=== PATIENT | female | born 1975 | race Caucasian/White ===

== ENCOUNTER 2016-08-15 14:55 | Outpatient (CLI) | payer MEDICAID ==
[~2016-08-15] VITALS: Ht 162.6 cm; Wt 95.0 kg
[~2016-08-15 14:55] MED LIST: ADDERALL 10 MG10 MG PO; ATIVAN0.5 MG PO; CIPRO500 MG PO; CYCLOBENZAPRINE10 MG PO; DILAUDID4 MG PO; DURAGESIC1 PATCH .1; NEURONTIN 300300 MG PO; NORCO 10/325 TA1 TA1 PO; OXYCODONE HCL E20 MG PO; OXYCODONE HCL10 MG PO; OXYCONTIN10 MG PO; PEPCID40 MG PO; PERCOCET 10/3251 TA1 PO; PHENERGAN25 M1 PO; REGLAN10 MG PO; VITAMIN B-1000 MCG/M IM; VYVANSE60 MG PO; XANAX0.5 MG PO; ZOFRAN8 MG PO; ZYPREXA2.5 MG PO
[2016-08-15 15:30] VITALS: BP 114/79; Ht 162.6 cm; Wt 95.0 kg
[2016-08-15 17:15] LABS: BASOPHILS 0.2 % (0.0-2.0); EOSINOPHILS 1.8 % (0-7); HEMATOCRIT 30.3 % (36.0-48.0); HEMOGLOBIN 9.2 g/dL (12-16); IMMATURE GRANULOCYTES 0.2 % (0-5); LYMPHOCYTES 40.1 % (15-50); MCH 28.5 pg (26.0-34.0); MCHC 30.4 g/dL (31.0-37.0); MCV 93.8 fL (80.0-100.0); MEAN PLATELET VOLUME 9.2 fL (7.4-10.4); MONOCYTES 8.2 % (2-11); NEUTROPHILS 49.5 % (40-80); RBC 3.23 10x6/uL (4.00-5.40); RDW 15.8 % (11.5-14.5); WBC 5.5 10x3/uL (4.8-10.8)
[2016-08-15 17:37] LABS: PLATELET COUNT 292 10x3/uL (130-400)
[2016-08-15 17:40] LABS: ALBUMIN 2.5 g/dL (3.4-5.0); ALKALINE PHOSPHATASE 115 U/L (46-116); ALT (SGPT) 36 U/L (10-68); BILIRUBIN - TOTAL 0.24 mg/dL (0.2-1.3); CALC OSMOLALITY 280 mosm/kg (275-300); CALCIUM 7.3 mg/dL (8.5-10.1); CHLORIDE - SERUM 108 mmol/L (98-107); CHOL - HDL RATIO 3.1 ratio (2.3-4.1); CHOLESTEROL, TOTAL 93 mg/dL (0-200); CREATININE - SERUM 0.8 mg/dL (0.6-1.3); GLUCOSE 88 mg/dL (74-106); HDL CHOLESTEROL 30 mg/dL (32-96); LDL CHOLESTEROL 51 mg/dL (0-100); LDL-HDL RATIO 1.7 ratio (1.5-3.5); SODIUM 141 mmol/L (136-145); THYROID STIMULATING HORMONE 3.14 uIU/mL (0.36-3.74); TRIGLYCERIDE 62 mg/dL (30-200); UREA NITROGEN 15 mg/dL (7-18); eGFR NON AFRICAN AMERICAN 83 mL/min (90-120)
== END 2016-08-15 15:46 | disposition home or self-care (01) ==
LOC: D.OPS 14:55
PROVIDERS: Family Medicine
DX: K86.1 Other chronic pancreatitis (principal); I10 Essential (primary) hypertension; Z13.220 Encounter for screening for lipoid disorders

== ENCOUNTER 2016-10-16 15:08 | Outpatient (CLI) | payer MEDICAID ==
[2016-10-16 15:47] VITALS: BP 141/98; Ht 162.6 cm
--- NOTE | 2016-10-16 15:50 | NUR ---
1525-ACCESSED PORT UNDER ASEPTIC TECHNIQUE WITH 20G 3/4 HINOJOSA NEEDLE.
== END 2016-10-16 15:40 ==
LOC: D.OPS 15:08
DX: K86.1 Other chronic pancreatitis (principal); Z45.2 Encounter for adjustment and management of vascular access device

== ENCOUNTER 2016-12-12 08:39 | Outpatient (CLI) | payer MEDICAID ==
[~2016-12-12] VITALS: Ht 162.6 cm; Wt 85.5 kg
[2016-12-12] MEDS ORDERED: KLONOPIN0.5 MG PO (09:27)
[2016-12-12 09:33] VITALS: BP 131/90; Ht 162.6 cm; Wt 85.5 kg
--- NOTE | 2016-12-12 11:03 | NUR ---
734941.8 68-18-97% SAT 113/76 PUDDING SERVED, INFUSIION HAS COMPLETED, PORT FLUSHED PER MAR, DC'D WITH HINOJOSA NEEDLE INTACT, RELEASED AMB.
== END 2016-12-12 11:00 | disposition home or self-care (01) ==
LOC: D.OPS 08:39
DX: Z45.2 Encounter for adjustment and management of vascular access device (principal)

== ENCOUNTER → 2017-01-05 09:39 | Outpatient (CLI) | payer MEDICAID ==
[2016-12-12 09:33] VITALS: BMI 32.3
[~2017-01-05 09:39] MED LIST changes: +KLONOPIN0.5 MG PO
== END | disposition home or self-care (01) ==
LOC: D.CT 09:39
DX: K43.0 Incisional hernia with obstruction, without gangrene (principal)

== ENCOUNTER → 2017-02-14 15:07 | Outpatient (CLI) | payer MEDICAID ==
[2016-12-12 09:33] VITALS: BMI 32.3
[~2017-02-14 15:07] MED LIST changes: +BACTRIM DS TABL1 TAB PO; +FLINTSTONE1 TAB.CHEW PO; +OXYCODONE HCL5 MG PO; +ROBAXIN500 MG PO; +VOLTAREN100 GM TOPICAL; +ZOFRAN ODT4 MG/UDTAB PO; -ZOFRAN8 MG PO
== END | disposition home or self-care (01) ==
LOC: D.CT 15:07
DX: D64.9 Anemia, unspecified (principal)

== ENCOUNTER 2017-02-19 12:46 | Outpatient (CLI) | payer MEDICAID ==
[~2017-02-19 12:46] MED LIST changes: -BACTRIM DS TABL1 TAB PO; -FLINTSTONE1 TAB.CHEW PO; -OXYCODONE HCL5 MG PO; -ROBAXIN500 MG PO; -VOLTAREN100 GM TOPICAL
[2017-02-19] MEDS ORDERED: VOLTAREN100 GM TOPICAL (14:50)
[2017-02-19 14:53] VITALS: BP 102/64; BMI 30.9
== END 2017-02-19 16:25 | disposition home or self-care (01) ==
LOC: D.OPS 12:46
DX: D64.9 Anemia, unspecified (principal)

== ENCOUNTER 2017-02-21 13:42 | Outpatient (CLI) | payer MEDICAID ==
[~2017-02-21 13:42] MED LIST changes: +VOLTAREN100 GM TOPICAL
[2017-02-21 14:27] VITALS: BMI 30.9
--- NOTE | 2017-02-21 14:33 | NUR ---
1410 LEFT PORT ACCESSED 1 10 GAUGE 3/4 INCH NEEDLE GOOD BLOOD RETURN DONE WITH STERILE TECHNIQUE.
--- NOTE | 2017-02-21 14:43 | NUR ---
1434 IV INFUSION COPPER INFUSION 1.6MG IN 100 C HR AT 52 CC HR INFUSINGG VIA LEFT PORT NO REDNESS OR SWELLING.
--- NOTE | 2017-02-21 15:23 | NUR ---
1520 EATING HER OWN LUNCH AND SPRITE. REQUESTED ICE AND GIVEN. IV VIA LEFT CHEST PORT INFUSING WITHOUT PROBLEMS NO REDNESS OR SWELLING.
--- NOTE | 2017-02-21 16:41 | NUR ---
1637 RECEIVED ALL COPPER INJECTION. FLUSHED PORT WITH SALINE AND JEPARIN. 20 GAUGE NEEDLE DCD CATHETER INTACT. DISCHARGE INSTRUCTIONS GIVEN. 1641 LEFT VIA AMBULATORY.
== END 2017-02-21 16:41 | disposition home or self-care (01) ==
LOC: D.OPS 13:42
DX: D64.9 Anemia, unspecified (principal)

== ENCOUNTER 2017-02-23 13:56 | Outpatient (CLI) | payer MEDICAID ==
[2017-02-23 14:15] VITALS: BP 114/75; BMI 30.9
--- NOTE | 2017-02-23 17:42 | NUR ---
1630 REPORT FROM OLIVIA CRUZ R.N. CHECKED ON PATIENT RECEIVING COPPER INJECTION AND INFUSING VIA LEFT PORT NO REDNESS OR SWELLING.
--- NOTE | 2017-02-23 17:45 | NUR ---
1659 FLUSHED PORT WITH SALINE AND HEPARIN FLUSH. HINOJOSA NEEDLE DCD CATHETER TIP INTACT.
--- NOTE | 2017-02-23 17:46 | NUR ---
1700 DISCHARGE INSTRUCTIOPNS GIVEN. 1705 PATIENT LEFT AMBULATED SELF AND TO HOME.
== END 2017-02-23 17:05 | disposition home or self-care (01) ==
LOC: D.OPS 13:56
DX: D64.9 Anemia, unspecified (principal)

== ENCOUNTER 2017-03-09 13:54 | Outpatient (CLI) | payer MEDICAID ==
[2017-03-09 15:25] VITALS: BP 127/83; BMI 30.9
--- NOTE | 2017-03-09 15:56 | NUR ---
1545 REPORT FROM MARTELL WHITEHEAD. RECEIVING COPPER INFUSING VIA LEFT CHEST PORT AT 52 CC/HR. NO RENESS OR SWELLING.
--- NOTE | 2017-03-09 17:59 | NUR ---
1718 INFUSION COPPER COMPLETE. 1719 PORT WITH SALINE AND HEPARIN FLUSH. TOLERATED WELL HINOJOSA NEEDLE DCD CATHETER INTACT.1720 DISCHARGED TO HOME AND TOLD TO COME BACK SUNDAY FOR COPPER INJECTION.
== END 2017-03-09 17:20 | disposition home or self-care (01) ==
LOC: D.OPS 13:54
DX: D64.9 Anemia, unspecified (principal); E83.00 Disorder of copper metabolism, unspecified

== ENCOUNTER 2017-03-12 13:47 | Outpatient (CLI) | payer MEDICAID ==
--- NOTE | 2017-03-12 14:53 | NUR ---
1440-ACCESSED PORT TO LEFT UPPER CHEST UNDER ASEPTIC TECHNIQUE WITH 19G ONE INCH HINOJOSA NEEDLE, FLUSHES EASILY AND BRISK BLOOD RETURN NOTED. INITITATED INFUSION VIA PUMP OVER 2 HRS.
[2017-03-12 15:01] VITALS: BP 113/78
--- NOTE | 2017-03-12 16:50 | NUR ---
INFUSION COMPLETED. PORT FLUSHED WITH SALINE AND HEP FLUSH. HINOJOSA NEEDLE D/C'D INTACT, SITE COVERED WITH BANDAID.
--- NOTE | 2017-03-12 16:55 | NUR ---
D/C'D AMBULATORY TO HOME.
== END 2017-03-12 16:55 | disposition home or self-care (01) ==
LOC: D.OPS 13:47
DX: D64.9 Anemia, unspecified (principal); E83.00 Disorder of copper metabolism, unspecified

== ENCOUNTER 2017-03-14 14:22 | Outpatient (CLI) | payer MEDICAID ==
[2017-03-14 15:03] VITALS: BP 138/99; BMI 30.9
--- NOTE | 2017-03-14 17:10 | NUR ---
1655-COMPLAINS OF "ALL OVER" BODY ACHES AND PAINS. ORDER RECEIVED BY TELEPHONE TO GIVEN 60MG TORADOL IM PER DR. KATE. DINNER TRAY ORDERED, WATCHING TV WITH ICE WATER OFFERED.
== END 2017-03-14 18:16 ==
LOC: D.OPS 14:22
DX: D64.9 Anemia, unspecified (principal); E83.00 Disorder of copper metabolism, unspecified

== ENCOUNTER 2017-04-04 11:37 | Outpatient (CLI) | payer MEDICAID ==
[~2017-04-04] VITALS: Ht 162.6 cm; Wt 81.8 kg
[2017-04-04 13:55] VITALS: Ht 162.6 cm; Wt 81.8 kg
== END 2017-04-04 14:55 ==
LOC: D.OPS 11:37
DX: D64.9 Anemia, unspecified (principal)

== ENCOUNTER 2017-04-06 09:38 | Outpatient (CLI) | payer MEDICAID ==
[~2017-04-06] VITALS: Ht 162.6 cm; Wt 81.8 kg
[2017-04-06 10:09] VITALS: BP 116/80; Ht 162.6 cm; Wt 81.8 kg
--- NOTE | 2017-04-06 10:33 | NUR ---
ARRIVED AT 1000 FOR COPPER INFUSION. ASSESSMENT COMPLETE V/S STABLE.
--- NOTE | 2017-04-06 10:36 | NUR ---
1025 ACCESSED PORT UNSUCCESSFUL BY DANIS KAN R.N. PORT ACCESSED LEFT CHEST GOOD BLOOD RETURN WITH STERILE TECHNIQUE.
--- NOTE | 2017-04-06 10:37 | NUR ---
1029 COPPER INFUSIN STARTED. INFUSING VIA LEFT PORT WITHOUT ANY PROBLEMS OR BURNING NOTED.
--- NOTE | 2017-04-06 11:48 | NUR ---
1125 ATE LUNCH. TOLERATED COPPER, NO S/S OF ADVERSE EFFECTS.
--- NOTE | 2017-04-06 11:49 | NUR ---
1140 SALINE AND HEPARIN FLUSH DONE TO PORT. HINOJOSA NEEDLE DCD CATHETER INTACT.
--- NOTE | 2017-04-06 11:51 | NUR ---
1145 DISCHARGED TO HOME AMBULATED WITH FRIEND.
== END 2017-04-06 11:45 | disposition home or self-care (01) ==
LOC: D.OPS 09:38
DX: D64.9 Anemia, unspecified (principal); E83.00 Disorder of copper metabolism, unspecified

== ENCOUNTER 2017-04-09 08:19 | Day surgery (SDC) | payer MEDICAID ==
[~2017-04-09] VITALS: Ht 162.6 cm; Wt 84.1 kg
[2017-04-09 10:17] VITALS: BP 108/74; Ht 162.6 cm; Wt 84.1 kg
[2017-04-09 10:38] LABS: HEMATOCRIT 35.6 % (36.0-48.0); HEMOGLOBIN 11.3 g/dL (12-16); MCH 30.5 pg (26.0-34.0); MCHC 31.7 g/dL (31.0-37.0); MCV 96.2 fL (80.0-100.0); MEAN PLATELET VOLUME 9.3 fL (7.4-10.4); RBC 3.7 10x6/uL (4.00-5.40); RDW 12.4 % (11.5-14.5); WBC 4.5 10x3/uL (4.8-10.8)
[2017-04-09] MEDS ORDERED: OXYCODONE HCL5 MG PO (12:57)
[2017-04-09] MEDS ORDERED: BACTRIM DS TABL1 TAB PO (13:00)
--- NOTE | 2017-04-09 15:15 | OP ---
PATIENT NAME: PHILIPP WHITEHEAD MEDICAL RECORD: [id number] :73 LOCATION:PATRICIA ADMISSION DATE: SURGEON: LÁZARO COURTNEY MD DATE OF OPERATION: 04/09/2017 PREOPERATIVE DIAGNOSES: Recurrent incisional hernia with involved abdominal scar, history of bariatric surgical procedure. POSTOPERATIVE DIAGNOSES: Recurrent incisional hernia with involved abdominal scar, history of bariatric surgical procedure. PROCEDURE PERFORMED: Scar revision and excision of abdominal wall soft tissue mass, incisional hernia repair with mesh. ANESTHESIA: General. COMPLICATIONS: None. SPECIMENS: Scar and subcutaneous fibrous tissue mass and incisional hernia repair with mesh. ESTIMATED BLOOD LOSS: 30 cc. Case was clean. OPERATIVE COURSE: After consent was obtained, the patient was taken to the operating room and placed in supine position on the operating table. Next, general anesthesia was given via endotracheal intubation after a timeout was taken to confirm the correct patient and procedure. A 20 cc of local anesthetic were injected around the midline incision. The scar was excised in its entirety using a 15 blade scalpel. There was a significant amount of scarred fibrous tissue in the dermis. It was excised using electrocautery. Dissection continued to the level of the external oblique fascia where the previous hernia repair was identified. There was a small 2-cm defect at the right lateral edge of the hernia repair. Subcutaneous tissue flaps were created. This tissue was undermined off the external oblique fascia using electrocautery. The hernia defect was closed primarily using an 0 Prolene suture. Next, a Ventralight mesh was used in an onlay technique to reinforce the hernia repair. A 4 x 6 inch Ventralight mesh was placed directly onto the anterior external oblique fascia, it was sutured in place using 2-0 Vicryl suture. The subcutaneous tissue flaps were reapproximated using 2-0 Vicryl suture. A JANE drain was placed into the subcutaneous tissue. Skin was reapproximated using 3-0 vertical mattress interrupted nylon sutures. The JANE drain was placed to suction. At the end of the case, all needle and instrument counts were correct. No complications occurred. The patient was extubated and transferred to the PACU in stable condition. TRANSINT:[id number] Voice Confirmation ID: [id number] DOCUMENT ID: [id number] OPERATIVE REPORT [id number] CHARLEYPHILIPP JAMES J MD at 1515 CC: [id number] DICTATION DATE: 04/09/17 1304 ACID TESTER: 04/09/17 1438 REG [facility] [address] [id number]
--- NOTE | 2017-04-09 16:00 | NUR ---
IV DC WITH CATHER TIP INTACT
--- NOTE | 2017-04-09 16:22 | NUR ---
DISCHARGE INSTRUCTIONS REVIEWED WITH PATIENT AND MOTHER. PATIENT EXPRESSES UNDERSTANDING OF INSTRUCTIONS AND UNDERSTANDING OF HOW TO EMPTY JANE DRAIN. PATIENT DISCHARGED HOME VIA WHEELCHAIR TO PRIVATE VEHICLE WITH SPOUSE
== END 2017-04-09 16:30 | disposition home or self-care (01) ==
LOC: D.OPS 08:19 → D.PAN 09:35 → D.OPS 09:45
PROVIDERS: Anesthesiology
DX: K43.2 Incisional hernia without obstruction or gangrene (principal); L90.5 Scar conditions and fibrosis of skin; L92.8 Other granulomatous disorders of the skin and subcutaneous tissue; Z98.84 Bariatric surgery status; Z01.812 Encounter for preprocedural laboratory examination

== ENCOUNTER 2017-04-17 10:16 | Outpatient (CLI) | payer MEDICAID ==
[~2017-04-17] VITALS: Ht 162.6 cm; Wt 81.8 kg
[~2017-04-17 10:16] MED LIST changes: +BACTRIM DS TABL1 TAB PO; +OXYCODONE HCL5 MG PO
[2017-04-17 10:48] VITALS: BP 128/85; Ht 162.6 cm; Wt 81.8 kg
== END 2017-04-17 12:15 | disposition home or self-care (01) ==
LOC: D.OPS 10:16
DX: D64.9 Anemia, unspecified (principal); E83.00 Disorder of copper metabolism, unspecified

== ENCOUNTER 2017-04-18 11:01 | Outpatient (CLI) | payer MEDICAID ==
[~2017-04-18] VITALS: Ht 162.6 cm; Wt 81.8 kg
[2017-04-18 14:04] VITALS: BP 142/88; Ht 162.6 cm; Wt 81.8 kg
[2017-04-18 14:15] LABS: BASOPHILS 0.1 % (0-2); EOSINOPHILS 1.4 % (0-7); HEMATOCRIT 35.1 % (36.0-48.0); HEMOGLOBIN 11.4 g/dL (12-16); IMMATURE GRANULOCYTES 0.2 % (0-5); LYMPHOCYTES 18.9 % (15-50); MCHC 32.5 g/dL (31.0-37.0); MCV 95.4 fL (80.0-100.0); MEAN PLATELET VOLUME 8.8 fL (7.4-10.4); MONOCYTES 9.5 % (2-11); NEUTROPHILS 69.9 % (40-80); PLATELET COUNT 247 10x3/uL (130-400); RBC 3.68 10x6/uL (4.00-5.40); RDW 12.3 % (11.5-14.5); WBC 9.1 10x3/uL (4.8-10.8)
[2017-04-18 14:59] LABS: ALBUMIN 2.1 g/dL (3.4-5.0); ANION GAP 8.9 mmol/L (8-16); BILIRUBIN - TOTAL 0.12 mg/dL (0.2-1.3); CALCIUM 7.6 mg/dL (8.5-10.1); CARBON DIOXIDE 28.1 mmol/L (21.0-32.0); CREATININE - SERUM 0.9 mg/dL (0.6-1.3); PROTEIN - SERUM 5.1 g/dL (6.4-8.2)
--- NOTE | 2017-04-18 15:02 | NUR ---
1501 INFUSION COMPLETED, DENIES PROBLEMS. FLUSHED WITH 20CC NS AND 5CC HEP FLUSH, HINOJOSA NEEDLE DC'D INTACK RELEASED AMB.
== END 2017-04-18 15:02 | disposition home or self-care (01) ==
LOC: D.OPS 11:01
PROVIDERS: Internal Medicine Medical Oncology
DX: D64.9 Anemia, unspecified (principal); E83.00 Disorder of copper metabolism, unspecified

== ENCOUNTER 2017-05-07 21:03 | Emergency (ER) | payer MEDICAID ==
[2017-04-18 14:04] VITALS: BMI 30.9
[2017-05-07 23:29] LABS: BASOPHILS 0.2 % (0-2); EOSINOPHILS 2.3 % (0-7); HEMATOCRIT 36.3 % (36.0-48.0); HEMOGLOBIN 11.7 g/dL (12-16); IMMATURE GRANULOCYTES 0.1 % (0-5); LYMPHOCYTES 26.9 % (15-50); MCHC 32.2 g/dL (31.0-37.0); MCV 93.1 fL (80.0-100.0); MONOCYTES 9.7 % (2-11); NEUTROPHILS 60.8 % (40-80); RDW 12.6 % (11.5-14.5); WBC 9.3 10x3/uL (4.8-10.8)
[2017-05-07 23:31] LABS: PLATELET COUNT 309 10x3/uL (130-400)
[2017-05-07 23:41] LABS: ALBUMIN 2.1 g/dL (3.4-5.0); ALKALINE PHOSPHATASE 173 U/L (46-116); ALT (SGPT) 26 U/L (10-68); BILIRUBIN - TOTAL 0.13 mg/dL (0.2-1.3); CALC OSMOLALITY 274 mosm/kg (275-300); CALCIUM 7.9 mg/dL (8.5-10.1); CHLORIDE - SERUM 104 mmol/L (98-107); CREATININE - SERUM 0.8 mg/dL (0.6-1.3); GLUCOSE 102 mg/dL (74-106); POTASSIUM - SERUM 3.8 mmol/L (3.5-5.1); SODIUM 137 mmol/L (136-145); UREA NITROGEN 14 mg/dL (7-18); eGFR NON AFRICAN AMERICAN 83 mL/min (90-120)
[2017-05-09] MEDS ORDERED: VYVANSE60 MG PO (04:01)
[2017-05-09] MEDS ORDERED: ZOFRAN ODT4 MG/UDTAB PO (04:02)
[2017-05-09] MEDS ORDERED: PERCOCET 10/3251 TA1 PO (04:03)
[2017-05-09] MEDS ORDERED: FLINTSTONE1 TAB.CHEW PO (04:05)
[2017-05-09] MEDS ORDERED: ROBAXIN500 MG PO (04:06)
== END 2017-05-08 00:15 | disposition home or self-care (01) ==
LOC: D.ER 21:03
PROVIDERS: Physician Assistant Medical
DX: L76.34 Postprocedural seroma of skin and subcutaneous tissue following other procedure (principal)

== ENCOUNTER 2017-05-09 00:51 | Inpatient (IN) | payer MEDICAID ==
[~2017-05-09] VITALS: Ht 162.6 cm; Wt 79.4 kg
--- NOTE | ~2017-05-09 | HEMODYNAMI ---
PATIENT:PHILIPP WHITEHEAD MEDICAL RECORD: [id number] : 73 LOCATION:D.MS [id number] ADMISSION DATE: 05/09/17 Generatedon:05/09/201714:35 Patient name: PHILIPP WHITEHEAD Patient #: [id number] SSN: : 1975 Date of study: 05/09/2017 Page: Of Hemodynamic Procedure Report Patient Data Patient Demographics Procedure consent was obtained First Name: PHILIPP Gender: Female Last Name: CHARLEY : 1975 Middle Initial: D Age: 41 year(s) Patient #: [id number] Race: Unknown Additional ID: [id number] Contact details Address: [address] [place] [address] State: [place] City: [facility] Zip code: [address] Admission Admission Data Admission Date: 05/09/2017 Admission Time: 2:53 Room #: D.2239 Procedure Procedure Types Cath Procedure Peripheral Cath Diagnostic Procedure Miscellaneous Procedure Description Procedure Date Procedure Date: 05/09/2017 Procedure Start Time: 14:00 Procedure Staff Name Function Jhoan Santos MD Performing Physician Ari Olivera RT Monitor Stacie Taylor RT Scrub Hazel Weathers RN Nurse Procedure Data Cath Procedure Fluoroscopy Diagnostic fluoroscopy Total fluoroscopy Time: 0.5 time: 0.5 min min Diagnostic fluoroscopy Total fluoroscopy dose: 48 dose: 48 mGy mGy Contrast Material Contrast Material Type Amount (ml) Isovue 300 15 Procedure Medications Medication Administration Route Dosage Fentanyl I.V. 50 mcg Versed I.V. 1 mg Versed I.V. 1 mg Fentanyl I.V. 50 mcg Hemodynamics Rest Heart Rate: 64 (bpm) Snapshots Pre Cath Intra NCS Post Cath Vital Signs Time Heart Resp SPO2 etCO2 NIBP (mmHg) Rhythm Pain Sedation Rate (ipm) (%) (mmHg) Status Level (bpm) 13:54:24 71 14 99 29.7 134/97(119) NSR 0 (11) 10(A) , No pain 13:58:36 69 18 100 14.5 133/83(112) NSR 0 (11) 10(A) , No pain 14:02:46 65 12 100 38.1 139/88(101) NSR 0 (11) 10(A) , No pain 14:06:58 68 11 100 40.4 135/87(111) NSR 0 (11) 10(A) , No pain 14:11:10 74 14 100 37.4 128/84(110) NSR 0 (11) 10(A) , No pain 14:15:20 68 11 37.4 136/80(110) NSR 0 (11) 10(A) , No pain 14:19:30 69 16 41.9 129/83(113) NSR 0 (11) 10(A) , No pain 14:23:40 68 11 34.3 129/82(99) NSR 0 (11) 10(A) , No pain 14:27:47 67 15 38.9 135/87(116) NSR 0 (11) 10(A) , No pain 14:31:59 67 12 38.8 134/86(108) NSR 0 (11) 10(A) , No pain Medications Time Medication Route Dose Verified Delivered Reason Notes Effectivene ss by by 14:09:01 Fentanyl I.V. 50 Jhoan Oliva for mcg Jasiel Santos RN sedation 14:09:13 Versed I.V. 1 mg Jhoan Oliva for Jasiel Santos RN sedation 14:14:21 Versed I.V. 1 mg Jhoan Oliva for Jasiel Santos RN sedation 14:14:29 Fentanyl I.V. 50 Jhoan Oliva for mcg Jasiel Santos RN sedation Procedure Log Time Note 13:39:03 Ari Olivera RT (R) (CV) sent for patient. Start room use. 13:39:13 Time tracking: Regular hours 13:39:18 Plan of Care:Hemodynamics will remain stable., Cardiac rhythm will remain stable., Comfort level will be maintained., Respiratory function will remain adequate., Patient/ family verbilizes understanding of procedure., Procedure tolerated without complication., Recovers from procedure without complications.. 13:39:24 Patient received from Med/Surg to IR Alert and oriented. Tansferred to table in Supine position. 13:39:25 Warm blankets applied, and lesly hugger turned on for patient comfort. 13:39:26 Correct patient and procedure confirmed by team. 13:39:27 Signed procedure consent form obtained from patient. 13:39:28 ECG and BP/O2 sat monitors applied to patient. 13:39:29 Full Disclosure recording started 13:39:30 - 13:39:32 H&P Date Dictated: 05/09/2017 Within 30 days and on chart.. 13:39:33 Pre-procedure instructions explained to patient. 13:39:33 Pre-op teaching completed and patient verbalized understanding. 13:39:39 Family unavailable. 13:39:43 Patient NPO since Midnight. 13:39:45 Is the patient allergic to Iodine/contrast media? No. 13:39:52 Is patient on blood thinner?No 13:39:54 Patient diabetic? No. 13:39:56 - 13:39:57 ----Pre-sedation anethsthesia assessment.---- 13:40:00 Previous problem with sedation/anesthesia? No ? 13:40:01 Snore? No 13:40:02 Sleep apnea? Yes 13:40:04 Deviated septum? No 13:40:05 Opens mouth fully? Yes 13:40:05 Sticks out tongue? Yes 13:40:07 Airway obstruction? No ? 13:40:11 Dentures? Yes in tight 13:40:20 Patient pain scale 0/10 no pain. 13:40:27 IV patent on arrival in port with 0.9% NaCl at [facility]. 13:40:37 Use device set IR Diagnostic 13:40:39 Bag Decanter (2002) opened to sterile field. 13:40:39 Sterile Angiographic Pack opened to sterile field. 13:53:20 Vital chart was started 13:53:21 Baseline sample Acquired. 13:59:13 Right abdomen area was prepped with chlora-prep and draped in sterile fashion 13:59:15 Alarms reviewed by R. N. 13:59:15 Sharps counted by scrub and verified by R.N. 13:59:57 Physician arrived 13:59:57 --------ALL STOP TIME OUT------ 13:59:58 Final Timeout: patient, procedure, and site verified with staff and physician. All members of the team are in agreement. 14:00:05 Right abdomen site verified by team. 14:00:10 Sedation plan: IV Moderate Sedation Medication:Versed, Fentanyl 14:00:24 Procedure started. 14:00:29 Local anesthetic to Abdominal area with Lidocaine 1% by Jhoan Santos MD.INITIAL ACCESS ONLY 14:07:22 Micropuncture VSI 4FR kit opened to sterile field. 14:07:22 BAG, DRAINAGE EMPTY 600ML W/SONIA ([id number]) opened to sterile field. 14:09:01 Fentanyl 50 mcg I.V. was administered by Hazel Weathers RN; for sedation ; 14:09:13 Versed 1 mg I.V. was administered by Hazel Weathers RN; for sedation; 14:11:13 Cook AMIN 80 CM guide wire opened to sterile field. 14:13:07 DILATOR, VESSEL 8/20 opened to sterile field. 14:13:08 DILATOR, VESSEL 10/20 opened to sterile field. 14:13:08 DILATOR, VESSEL 11/20 opened to sterile field. 14:13:28 Abscession 12 FR drainage catheter ([id number]) opened to sterile field. 14:14:21 Versed 1 mg I.V. was administered by Hazel Weathers RN; for sedation; 14:14:29 Fentanyl 50 mcg I.V. was administered by Hazel Weathers RN; for sedation ; 14:14:58 STOPCOCK 3-Way Large Bore ([id number]) opened to sterile field. 14:15:14 SUTURE ETHILON 2-0 BLK MONO FS opened to sterile field. 14:15:16 Tegaderm 4 x 4 (1626W) opened to sterile field. 14:25:01 Procedure ended.(Physican Out) 14:30:48 Fluoroscopy time 00.50 minutes. 14:30:52 Fluoroscopy dose: 48 mGy 14:30:52 Flurop Dose total: 48 14:31:29 Contrast amount:Isovue 300 15ml. 14:31:31 Insertion/operative site no bleeding no hematoma. 14:31:39 Post Abdominal area:stable 14:33:34 Post procedure instruction explained to patient.Patient verbalizes understanding. 14:33:35 Procedure and supply charges have been captured, reviewed, submitted an d are correct. 14:34:39 Report given to Med/Surg. 14:34:42 Patient transfered to Med/Surg with Bed. 14:35:01 Vital chart was stopped Device Usage Item Name Manufacture Quantity Catalog Hospital Part Current Minim al Lot# / Number Charge Number Stock Stock Serial# Code Bag Decanter Microtek 1 [id number] 02013 [id number] 5 () Medical Inc. Sterile Cardinal 1 [id number] [id number] 5 Angiographic Health Pack Micropuncture VSI VASCULAR 1 [id number] 174036 971103 5 VSI 4FR kit SOLUTIONS BAG, DRAINAGE [facility] 1 [id number] 741004 456469 804248 5 EMPTY 600ML W/SONIA ([id number]) Cook AMIN 80 [employer] 1 [id number] 093265 659914 5 [id number] CM guide wire DILATOR, [employer] 1 [id number] 617657 57850 837045 5 [id number] VESSEL 8/20 DILATOR, [employer] 1 [id number] 868435 70507 971071 5 [id number] VESSEL 10/20 DILATOR, [employer] 1 [id number] 448865 29117 846308 5 [id number] VESSEL 11/20 Abscession 12 Angiodynamics 1 [id number] 718022 260519 931056 5 FR drainage catheter ([id number]) STOPCOCK [employer] 1 [id number] 462617 6023 941537 5 [id number] 3-Way Large Bore ([id number]) SUTURE Ethicon 1 664H 209490 886856 5 ETHILON 2-0 BLK MONO FS Tegaderm 4 x 3M 1 1626W 856341 925009 515933 5 4 (1626W) Signature Audit [place] Stage Time Signature Unsigned Intra-Procedure 05/09/2017 Ari 2:34:58 PM Shuffield RT (R) (CV) Signatures Monitor : Ari Signature : Joselin RT Date : Time : [place] [address] [id number] [place] [address]
[2017-05-09 01:42] LABS: BASOPHILS 0.3 % (0-2); EOSINOPHILS 3.7 % (0-7); HEMATOCRIT 34.7 % (36.0-48.0); HEMOGLOBIN 11.2 g/dL (12-16); IMMATURE GRANULOCYTES 0.1 % (0-5); LYMPHOCYTES 29.4 % (15-50); MCHC 32.3 g/dL (31.0-37.0); MEAN PLATELET VOLUME 8.6 fL (7.4-10.4); MONOCYTES 9.9 % (2-11); NEUTROPHILS 56.6 % (40-80); PLATELET COUNT 264 10x3/uL (130-400); RBC 3.73 10x6/uL (4.00-5.40); RDW 12.6 % (11.5-14.5)
[2017-05-09 01:43] LABS: WBC 6.8 10x3/uL (4.8-10.8)
[2017-05-09 01:55] LABS: ALKALINE PHOSPHATASE 154 U/L (46-116); ALT (SGPT) 24 U/L (10-68); C-REACTIVE PROTEIN 2.4 mg/dL (0.0-0.9); CALC OSMOLALITY 271 mosm/kg (275-300); CALCIUM 7.8 mg/dL (8.5-10.1); CARBON DIOXIDE 26.4 mmol/L (21.0-32.0); CHLORIDE - SERUM 103 mmol/L (98-107); CREATININE - SERUM 0.7 mg/dL (0.6-1.3); GLUCOSE 83 mg/dL (74-106); PROTEIN - SERUM 5.8 g/dL (6.4-8.2); SODIUM 137 mmol/L (136-145); UREA NITROGEN 11 mg/dL (7-18); eGFR NON AFRICAN AMERICAN > 90 mL/min (90-120)
[2017-05-09] MEDS ORDERED: VYVANSE60 MG PO (04:01)
[2017-05-09] MEDS ORDERED: ZOFRAN ODT4 MG/UDTAB PO (04:02)
[2017-05-09] MEDS ORDERED: PERCOCET 10/3251 TA1 PO (04:03)
[2017-05-09] MEDS ORDERED: FLINTSTONE1 TAB.CHEW PO (04:05)
[2017-05-09] MEDS ORDERED: ROBAXIN500 MG PO (04:06)
[2017-05-09 04:48] VITALS: BP 107/82; BMI 30.1
[2017-05-09 09:16] VITALS: BP 101/72
[2017-05-09 10:59] LABS: BASOPHILS 0.2 % (0-2); HEMATOCRIT 33.1 % (36.0-48.0); HEMOGLOBIN 10.7 g/dL (12-16); IMMATURE GRANULOCYTES 0.2 % (0-5); LYMPHOCYTES 23.4 % (15-50); MCH 30.2 pg (26.0-34.0); MCHC 32.3 g/dL (31.0-37.0); MCV 93.5 fL (80.0-100.0); MEAN PLATELET VOLUME 8.7 fL (7.4-10.4); MONOCYTES 8.1 % (2-11); NEUTROPHILS 64.1 % (40-80); PLATELET COUNT 253 10x3/uL (130-400); RBC 3.54 10x6/uL (4.00-5.40); RDW 12.6 % (11.5-14.5); WBC 5.9 10x3/uL (4.8-10.8)
[2017-05-09 11:14] LABS: CALC OSMOLALITY 274 mosm/kg (275-300); CALCIUM 7.8 mg/dL (8.5-10.1); CARBON DIOXIDE 27.6 mmol/L (21.0-32.0); CHLORIDE - SERUM 108 mmol/L (98-107); CREATININE - SERUM 0.6 mg/dL (0.6-1.3); GLUCOSE 85 mg/dL (74-106); POTASSIUM - SERUM 4.3 mmol/L (3.5-5.1); SODIUM 139 mmol/L (136-145); eGFR NON AFRICAN AMERICAN > 90 mL/min (90-120)
[2017-05-09 11:19] LABS: UREA NITROGEN 8 mg/dL (7-18)
[2017-05-09 11:27] LABS: APTT 32.2 SECONDS (22.8-39.4); INR 1.12 (0.85-1.17)
[2017-05-09 11:47] VITALS: BP 112/75
[2017-05-09 16:15] VITALS: BP 108/72
[2017-05-09 19:03] VITALS: Ht 162.6 cm; Wt 79.4 kg
[2017-05-10 04:00] VITALS: BP 111/80
[2017-05-10 06:26] LABS: BASOPHILS 0.2 % (0-2); EOSINOPHILS 3.5 % (0-7); HEMATOCRIT 33.2 % (36.0-48.0); HEMOGLOBIN 10.6 g/dL (12-16); LYMPHOCYTES 35.6 % (15-50); MCH 29.9 pg (26.0-34.0); MCHC 31.9 g/dL (31.0-37.0); MCV 93.5 fL (80.0-100.0); MEAN PLATELET VOLUME 8.6 fL (7.4-10.4); MONOCYTES 10.4 % (2-11); NEUTROPHILS 50.3 % (40-80); PLATELET COUNT 228 10x3/uL (130-400); RBC 3.55 10x6/uL (4.00-5.40); RDW 12.6 % (11.5-14.5); WBC 4.6 10x3/uL (4.8-10.8)
[2017-05-10 06:49] LABS: ALBUMIN 1.5 g/dL (3.4-5.0); ALKALINE PHOSPHATASE 140 U/L (46-116); CALCIUM 7.6 mg/dL (8.5-10.1); CARBON DIOXIDE 26.3 mmol/L (21.0-32.0); CHLORIDE - SERUM 109 mmol/L (98-107); CREATININE - SERUM 0.6 mg/dL (0.6-1.3); GLUCOSE 111 mg/dL (74-106); POTASSIUM - SERUM 3.8 mmol/L (3.5-5.1); SODIUM 141 mmol/L (136-145); eGFR NON AFRICAN AMERICAN > 90 mL/min (90-120)
[2017-05-10 06:58] LABS: ALT (SGPT) 16 U/L (10-68); CALC OSMOLALITY 278 mosm/kg (275-300); UREA NITROGEN 5 mg/dL (7-18)
[2017-05-10 07:58] VITALS: BP 112/72
[2017-05-10 12:02] VITALS: BP 98/65
[2017-05-10 16:14] VITALS: BP 120/73
[2017-05-11] VITALS: BP 105/73
[2017-05-11 04:00] VITALS: BP 130/71
[2017-05-11 05:29] LABS: BASOPHILS 0.4 % (0-2); EOSINOPHILS 8.5 % (0-7); HEMATOCRIT 34.2 % (36.0-48.0); HEMOGLOBIN 10.8 g/dL (12-16); IMMATURE GRANULOCYTES 0.2 % (0-5); LYMPHOCYTES 36.7 % (15-50); MCH 29.8 pg (26.0-34.0); MCHC 31.6 g/dL (31.0-37.0); MCV 94.2 fL (80.0-100.0); MEAN PLATELET VOLUME 9.1 fL (7.4-10.4); MONOCYTES 12.1 % (2-11); NEUTROPHILS 42.1 % (40-80); RBC 3.63 10x6/uL (4.00-5.40); RDW 12.5 % (11.5-14.5)
[2017-05-11 05:30] LABS: PLATELET COUNT 288 10x3/uL (130-400)
[2017-05-11 05:52] LABS: ALBUMIN 1.7 g/dL (3.4-5.0); ALKALINE PHOSPHATASE 133 U/L (46-116); ALT (SGPT) 16 U/L (10-68); CALC OSMOLALITY 279 mosm/kg (275-300); CALCIUM 7.7 mg/dL (8.5-10.1); CARBON DIOXIDE 28.7 mmol/L (21.0-32.0); CHLORIDE - SERUM 108 mmol/L (98-107); GLUCOSE 128 mg/dL (74-106); POTASSIUM - SERUM 3.9 mmol/L (3.5-5.1); PROTEIN - SERUM 5.2 g/dL (6.4-8.2); SODIUM 141 mmol/L (136-145); UREA NITROGEN 4 mg/dL (7-18); VANCOMYCIN - TROUGH 8.4 ug/mL (10.0-20.0)
[2017-05-11 05:53] LABS: BILIRUBIN - TOTAL 0.08 mg/dL (0.2-1.3); CREATININE - SERUM 0.8 mg/dL (0.6-1.3); eGFR NON AFRICAN AMERICAN 83 mL/min (90-120)
[2017-05-11 08:21] VITALS: BP 129/92
[2017-05-11 11:50] VITALS: BP 123/83
[2017-05-11] MEDS ORDERED: OXYCODONE HCL5 MG PO (14:00)
[2017-05-11] MEDS ORDERED: BACTRIM DS TABL1 TAB PO (14:01)
[2017-05-11 14:17] LABS: FUNGUS STAIN Final report (())
[2017-06-07 12:19] LABS: FUNGUS MYCOLOGY CULTURE Final report (())
== END 2017-05-11 15:47 | disposition home or self-care (01) | DRG 863 ==
LOC: D.ER 00:51 → D.MS 02:53
PROVIDERS: Family Medicine; General Practice
PROC: 0W9F30Z Drainage of Abdominal Wall with Drainage Device, Percutaneous Approach (ICD-10-PCS; principal; 2017-05-09 13:30)
DX: T81.4XXA Infection following a procedure, initial encounter (principal); L03.90 Cellulitis, unspecified; Y83.8 Other surgical procedures as the cause of abnormal reaction of the patient, or of later complication, without mention of misadventure at the time of the procedure; Y82.8 Other medical devices associated with adverse incidents; R79.82 Elevated C-reactive protein (CRP); F41.8 Other specified anxiety disorders; D64.9 Anemia, unspecified

== ENCOUNTER 2017-06-10 05:02 | Emergency (ER) | payer SELFPAY ==
[~2017-06-10 05:02] MED LIST changes: +FLINTSTONE1 TAB.CHEW PO; +ROBAXIN500 MG PO
== END 2017-06-10 06:20 | disposition home or self-care (01) ==
LOC: D.ER 05:02
DX: S93.601A Unspecified sprain of right foot, initial encounter (principal); W19.XXXA Unspecified fall, initial encounter; Y93.89 Activity, other specified; Y92.019 Unspecified place in single-family (private) house as the place of occurrence of the external cause; S80.212A Abrasion, left knee, initial encounter

== ENCOUNTER 2017-09-12 11:28 | Outpatient (CLI) | payer MEDICARE ==
[~2017-09-12] VITALS: Ht 162.6 cm; Wt 81.8 kg
[2017-09-12 13:55] VITALS: Ht 162.6 cm; Wt 81.8 kg
== END 2017-09-12 14:44 | disposition home or self-care (01) ==
LOC: D.OPS 11:28
DX: D64.9 Anemia, unspecified (principal); E83.00 Disorder of copper metabolism, unspecified

== ENCOUNTER → 2017-10-24 16:28 | Outpatient (CLI) | payer MEDICARE ==
[2017-09-12 13:55] VITALS: BMI 30.9
== END | disposition home or self-care (01) ==
LOC: D.RAD 16:28
DX: M54.5 Low back pain (principal); M54.16 Radiculopathy, lumbar region

== ENCOUNTER 2017-12-14 13:18 | Outpatient (CLI) | payer MEDICARE ==
[~2017-12-14] VITALS: Ht 162.6 cm; Wt 79.5 kg
[2017-12-14 14:32] VITALS: BP 111/79; Ht 162.6 cm; Wt 79.5 kg
== END 2017-12-14 18:30 | disposition home or self-care (01) ==
LOC: D.OPS 13:18
DX: E83.00 Disorder of copper metabolism, unspecified (principal); Z01.812 Encounter for preprocedural laboratory examination

== ENCOUNTER 2017-12-17 13:24 | Outpatient (CLI) | payer MEDICARE ==
[~2017-12-17] VITALS: Ht 162.6 cm; Wt 79.5 kg
[2017-12-17 14:52] VITALS: Ht 162.6 cm; Wt 79.5 kg
== END 2017-12-17 16:50 | disposition home or self-care (01) ==
LOC: D.OPS 13:24
DX: E83.00 Disorder of copper metabolism, unspecified (principal); Z01.812 Encounter for preprocedural laboratory examination

== ENCOUNTER 2017-12-18 14:14 | Outpatient (CLI) | payer MEDICARE ==
[~2017-12-18] VITALS: Ht 162.6 cm; Wt 81.8 kg
[2017-12-18 14:58] VITALS: Ht 162.6 cm; Wt 81.8 kg
== END 2017-12-18 16:54 | disposition home or self-care (01) ==
LOC: D.OPS 14:14
DX: E83.00 Disorder of copper metabolism, unspecified (principal); Z01.812 Encounter for preprocedural laboratory examination

== ENCOUNTER 2017-12-19 15:35 | Outpatient (CLI) | payer MEDICARE ==
[~2017-12-19] VITALS: Ht 162.6 cm; Wt 81.8 kg
[2017-12-19 15:54] VITALS: BP 142/87; Ht 162.6 cm; Wt 81.8 kg
== END 2017-12-19 17:40 | disposition home or self-care (01) ==
LOC: D.OPS 15:35
DX: E83.00 Disorder of copper metabolism, unspecified (principal); Z01.812 Encounter for preprocedural laboratory examination

== ENCOUNTER → 2017-12-21 14:09 | Outpatient (CLI) | payer MEDICARE ==
[~2017-12-21] VITALS: Ht 162.6 cm; Wt 81.8 kg
[2017-12-21 14:33] VITALS: BP 140/87; Ht 162.6 cm; Wt 81.8 kg
== END | disposition home or self-care (01) ==
LOC: D.OPS 14:09
DX: E83.00 Disorder of copper metabolism, unspecified (principal); Z01.812 Encounter for preprocedural laboratory examination

== ENCOUNTER 2018-01-15 11:29 | Outpatient (CLI) | payer MEDICARE ==
[~2018-01-15] VITALS: Ht 162.6 cm; Wt 79.5 kg
[2018-01-15 11:49] VITALS: BP 129/88; Ht 162.6 cm; Wt 79.5 kg
== END 2018-01-15 13:50 | disposition home or self-care (01) ==
LOC: D.OPS 11:29
DX: D64.9 Anemia, unspecified (principal); E83.00 Disorder of copper metabolism, unspecified

== ENCOUNTER → 2018-01-16 15:31 | Outpatient (CLI) | payer MEDICARE ==
[~2018-01-16] VITALS: Ht 162.6 cm; Wt 81.4 kg
[2018-01-16 15:50] VITALS: BP 130/93; Ht 162.6 cm; Wt 81.4 kg
== END | disposition home or self-care (01) ==
LOC: D.OPS 12:00
DX: D64.9 Anemia, unspecified (principal); Z01.812 Encounter for preprocedural laboratory examination

== ENCOUNTER 2018-01-17 15:43 | Outpatient (CLI) | payer MEDICARE ==
[~2018-01-17] VITALS: Ht 162.6 cm; Wt 81.4 kg
[2018-01-17 16:38] VITALS: BP 132/95; Ht 162.6 cm; Wt 81.4 kg
== END 2018-01-17 17:20 | disposition home or self-care (01) ==
LOC: D.OPS 15:43
DX: D64.9 Anemia, unspecified (principal); E83.00 Disorder of copper metabolism, unspecified; Z01.812 Encounter for preprocedural laboratory examination

== ENCOUNTER 2018-01-18 13:58 | Outpatient (CLI) | payer MEDICARE ==
[~2018-01-18] VITALS: Ht 162.6 cm; Wt 81.2 kg
[2018-01-18 14:16] VITALS: BP 150/102; Ht 162.6 cm; Wt 81.2 kg
== END 2018-01-18 16:03 | disposition home or self-care (01) ==
LOC: D.OPS 13:58
DX: D64.9 Anemia, unspecified (principal); Z01.812 Encounter for preprocedural laboratory examination

== ENCOUNTER 2018-01-21 13:46 | Outpatient (CLI) | payer MEDICARE ==
[~2018-01-21] VITALS: Ht 162.6 cm; Wt 81.4 kg
[2018-01-21 14:12] VITALS: Ht 162.6 cm; Wt 81.4 kg
== END 2018-01-21 15:32 | disposition home or self-care (01) ==
LOC: D.OPS 13:46
DX: D64.9 Anemia, unspecified (principal); E83.00 Disorder of copper metabolism, unspecified; Z01.812 Encounter for preprocedural laboratory examination

== ENCOUNTER 2018-02-22 11:44 | Outpatient (CLI) | payer MEDICARE ==
[~2018-02-22] VITALS: Ht 162.6 cm; Wt 81.4 kg
[2018-02-22 13:49] VITALS: BP 109/70; Ht 162.6 cm; Wt 81.4 kg
== END 2018-02-22 16:15 | disposition home or self-care (01) ==
LOC: D.OPS 11:44
DX: D64.9 Anemia, unspecified (principal); Z01.812 Encounter for preprocedural laboratory examination

== ENCOUNTER → 2018-02-25 08:07 | Outpatient (CLI) | payer MEDICARE ==
[~2018-02-25] VITALS: Ht 162.6 cm; Wt 79.5 kg
[2018-02-25 11:27] VITALS: Ht 162.6 cm; Wt 79.5 kg
== END | disposition home or self-care (01) ==
LOC: D.OPS 02-12 11:00
DX: E83.00 Disorder of copper metabolism, unspecified (principal); Z01.812 Encounter for preprocedural laboratory examination

== ENCOUNTER 2018-02-26 10:34 | Outpatient (CLI) | payer MEDICARE ==
[~2018-02-26] VITALS: Ht 162.6 cm; Wt 79.5 kg
[2018-02-26 12:46] VITALS: BP 130/75; Ht 162.6 cm; Wt 79.5 kg
== END 2018-02-26 13:05 | disposition home or self-care (01) ==
LOC: D.OPS 10:34
DX: E83.00 Disorder of copper metabolism, unspecified (principal); Z01.812 Encounter for preprocedural laboratory examination

== ENCOUNTER 2018-02-27 12:18 | Outpatient (CLI) | payer MEDICARE ==
[~2018-02-27] VITALS: Ht 162.6 cm; Wt 77.3 kg
[2018-02-27 12:57] VITALS: BP 132/80; Ht 162.6 cm; Wt 77.3 kg
== END 2018-02-27 15:17 | disposition home or self-care (01) ==
LOC: D.OPS 12:18
DX: E83.00 Disorder of copper metabolism, unspecified (principal); Z01.812 Encounter for preprocedural laboratory examination

== ENCOUNTER 2018-02-28 09:23 | Outpatient (CLI) | payer MEDICARE ==
[~2018-02-28] VITALS: Ht 162.6 cm; Wt 79.5 kg
[2018-02-28 09:42] VITALS: BP 129/86; BMI 30.1
[2018-03-25 13:00] VITALS: Ht 162.6 cm; Wt 79.5 kg
== END 2018-02-28 11:58 | disposition home or self-care (01) ==
LOC: D.OPS 09:23
DX: E83.00 Disorder of copper metabolism, unspecified (principal); Z01.812 Encounter for preprocedural laboratory examination

== ENCOUNTER 2018-03-04 10:55 | Outpatient (CLI) | payer MEDICARE ==
[~2018-03-04] VITALS: Ht 162.6 cm; Wt 81.4 kg
[2018-03-04 12:52] VITALS: BP 134/85; Ht 162.6 cm; Wt 81.4 kg
== END 2018-03-04 13:45 | disposition home or self-care (01) ==
LOC: D.OPS 10:55
DX: E83.00 Disorder of copper metabolism, unspecified (principal); Z01.812 Encounter for preprocedural laboratory examination

== ENCOUNTER 2018-03-25 12:45 | Outpatient (CLI) | payer MEDICARE ==
[~2018-03-25] VITALS: Ht 162.6 cm; Wt 79.5 kg
[2018-03-25] MEDS ORDERED: CYMBALTA60 MG PO (12:56)
[2018-03-25 13:00] VITALS: Ht 162.6 cm; Wt 79.5 kg
== END 2018-03-25 14:51 | disposition home or self-care (01) ==
LOC: D.OPS 12:45
DX: E61.0 Copper deficiency (principal); Z01.812 Encounter for preprocedural laboratory examination

== ENCOUNTER 2018-03-26 13:06 | Outpatient (CLI) | payer MEDICARE ==
[~2018-03-26] VITALS: Ht 162.6 cm; Wt 81.4 kg
[~2018-03-26 13:06] MED LIST changes: +CYMBALTA60 MG PO
[2018-03-26 13:23] VITALS: BP 130/89; Ht 162.6 cm; Wt 81.4 kg
== END 2018-03-26 15:25 | disposition home or self-care (01) ==
LOC: D.OPS 13:06
DX: E61.0 Copper deficiency (principal); Z01.812 Encounter for preprocedural laboratory examination

== ENCOUNTER → 2018-03-27 13:16 | Outpatient (CLI) | payer MEDICARE ==
[~2018-03-27] VITALS: Ht 162.6 cm; Wt 81.4 kg
[2018-03-27 13:52] VITALS: BP 107/77; Ht 162.6 cm; Wt 81.4 kg
== END | disposition home or self-care (01) ==
LOC: D.OPS 10:00
DX: E61.0 Copper deficiency (principal); Z01.812 Encounter for preprocedural laboratory examination

== ENCOUNTER 2018-03-28 12:42 | Outpatient (CLI) | payer MEDICARE ==
[~2018-03-28] VITALS: Ht 162.6 cm; Wt 81.4 kg
[2018-03-28 13:10] VITALS: BP 106/43; Ht 162.6 cm; Wt 81.4 kg
== END 2018-03-28 15:01 | disposition home or self-care (01) ==
LOC: D.OPS 12:42
DX: E61.0 Copper deficiency (principal); Z01.812 Encounter for preprocedural laboratory examination

== ENCOUNTER 2018-03-29 12:58 | Outpatient (CLI) | payer MEDICARE ==
[~2018-03-29] VITALS: Ht 162.6 cm; Wt 81.4 kg
[2018-03-29 13:37] VITALS: BP 144/97; Ht 162.6 cm; Wt 81.4 kg
== END 2018-03-29 14:35 | disposition home or self-care (01) ==
LOC: D.OPS 12:58
DX: E61.0 Copper deficiency (principal); Z01.812 Encounter for preprocedural laboratory examination

== ENCOUNTER 2018-04-22 13:36 | Outpatient (CLI) | payer MEDICARE ==
[~2018-04-22] VITALS: Ht 162.6 cm; Wt 81.8 kg
[2018-04-22 14:51] VITALS: Ht 162.6 cm; Wt 81.8 kg
== END 2018-04-22 15:56 | disposition home or self-care (01) ==
LOC: D.OPS 13:36
DX: E61.0 Copper deficiency (principal); Z01.812 Encounter for preprocedural laboratory examination; D64.9 Anemia, unspecified

== ENCOUNTER → 2018-04-23 13:33 | Outpatient (CLI) | payer MEDICARE ==
[~2018-04-23] VITALS: Ht 162.6 cm; Wt 81.4 kg
[2018-04-23 14:37] VITALS: BP 143/92; Ht 162.6 cm; Wt 81.4 kg
== END | disposition home or self-care (01) ==
LOC: D.OPS 13:30
DX: E61.0 Copper deficiency (principal); D64.9 Anemia, unspecified

== ENCOUNTER 2018-04-24 12:56 | Outpatient (CLI) | payer MEDICARE ==
[~2018-04-24] VITALS: Ht 162.6 cm; Wt 81.4 kg
[2018-04-24 13:16] VITALS: BP 138/82; Ht 162.6 cm; Wt 81.4 kg
== END 2018-04-24 15:14 | disposition home or self-care (01) ==
LOC: D.OPS 12:56
DX: E61.0 Copper deficiency (principal); D64.9 Anemia, unspecified

== ENCOUNTER 2018-04-25 12:35 | Outpatient (CLI) | payer MEDICARE ==
[~2018-04-25] VITALS: Ht 162.6 cm; Wt 81.8 kg
[2018-04-25 13:14] VITALS: BP 128/80; Ht 162.6 cm; Wt 81.8 kg
== END 2018-04-25 14:10 | disposition home or self-care (01) ==
LOC: D.OPS 12:35
DX: E61.0 Copper deficiency (principal); Z01.812 Encounter for preprocedural laboratory examination

== ENCOUNTER → 2018-04-29 14:08 | Outpatient (CLI) | payer MEDICARE ==
[~2018-04-29] VITALS: Ht 162.6 cm; Wt 81.8 kg
[2018-04-29 19:47] VITALS: Ht 162.6 cm; Wt 81.8 kg
== END | disposition home or self-care (01) ==
LOC: D.OPS 04-26 13:30
DX: D64.9 Anemia, unspecified (principal); E61.0 Copper deficiency; Z01.812 Encounter for preprocedural laboratory examination

== ENCOUNTER 2018-06-06 08:00 | Outpatient (CLI) | payer MEDICARE ==
[2018-04-29 19:47] VITALS: BMI 30.9
== END 2018-06-06 09:00 | disposition home or self-care (01) ==
LOC: D.MAMMO 08:00
DX: Z12.31 Encounter for screening mammogram for malignant neoplasm of breast (principal)

== ENCOUNTER → 2018-06-20 08:13 | Outpatient (CLI) | payer MEDICARE ==
[2018-04-29 19:47] VITALS: BMI 30.9
== END | disposition home or self-care (01) ==
LOC: D.MRI 08:13
DX: M25.562 Pain in left knee (principal)

== ENCOUNTER 2018-08-09 06:27 | Day surgery (SDC) | payer MEDICARE ==
[2018-08-08 11:07] LABS: HEMATOCRIT 35.4 % (36.0-48.0); HEMOGLOBIN 10.7 g/dL (12-16); MCH 29.7 pg (26.0-34.0); MCHC 30.2 g/dL (31.0-37.0); MCV 98.3 fL (80.0-100.0); MEAN PLATELET VOLUME 9.1 fL (7.4-10.4); RBC 3.6 10x6/uL (4.00-5.40); RDW 18.5 % (11.5-14.5); WBC 7.5 10x3/uL (4.8-10.8)
[~2018-08-09] VITALS: Ht 162.6 cm; Wt 81.2 kg
--- NOTE | 2018-08-09 06:40 | NUR ---
CALLED DR WASHINGTON AND NOTIFIED OF LOW O2 SAT AND LOW H&h. WANTS TO CONTINUE WITH PROCEDURE.
[2018-08-09 06:50] VITALS: BP 115/67; Ht 162.6 cm; Wt 81.2 kg
[2018-08-09] MEDS ORDERED: DILAUDID4 MG PO (10:54)
[2018-08-09] MEDS ORDERED: VISTARIL50 MG PO (10:54)
--- NOTE | 2018-08-09 11:45 | NUR ---
RT COMPLETED BLOOD GASSES. PARAMETERS WITHIN NORMAL LIMITS PER RT. DR. OLIVAREZ ADVISED PT IS STABLE LONG SAO2 MAINTAINS ABOVE 80% ON ROOM AIR. CONTINUING TO MONITOR. PT CONTINUES TO C/O PAIN OF 8 AFTER RECEIVING FENTANYL IN SURGERY, DILAUDID, AND TORADOL IN RECOVERY.
--- NOTE | 2018-08-09 13:33 | NUR ---
PATIENT AMBULATES TO BATHROOM WEARING HINGED BRACE ON LEFT KNEE, USING WALKER. AMBULATES WITHOUT UNSTEADINESS OR DIFFICULTY. LEFT CHEST PORT FLUSHED AND DEACCESSED. 1350 DISCHARGE INSTRUCTIONS REVIEWED WITH PATIENT, DISCHARGED HOME VIA WHEELCHAIR TO PRIVATE VEHICLE
--- NOTE | 2018-08-09 15:13 | OP ---
PATIENT NAME: PHILIPP WHITEHEAD MEDICAL RECORD: [id number] :73 LOCATION:PATRICIA ADMISSION DATE: SURGEON: ANEUYD WASHINGTON DO DATE OF OPERATION: 08/09/2018 PROCEDURE PERFORMED: Left knee arthroscopy with lateral meniscal repair and loose body removal. PREOPERATIVE DIAGNOSES: Left knee loose body with lateral meniscal tear, peripheral tear. POSTOPERATIVE DIAGNOSES: Left knee loose body with lateral meniscal tear, peripheral tear. INDICATIONS: Ms. Whitehead is a 43-year-old female who has had left knee pain for quite some time. 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 She mostly complained of lateral joint line pain. MRI did show a loose body. Overreading it with my nurse practitioner, we felt was likely due to cartilage, did show some cartilage loss in the patella on the MRI, and we did note it on the MR, but the meniscal tear did not show up. She was informed of the risks and benefits of the procedure and signed the consent. She was aware of it including infection, bleeding, damage to nerves and vessels, need for further surgery and continued pain. She was also on pain management and she is on a large dose of narcotics. 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 The patient was aware that she will be a risk for not being able to control her pain due to what she is on now and she has signed the consent. SURGEON: Aneudy Washington DO DESCRIPTION OF PROCEDURE: The patient was taken to the operative suite, laid in supine position, given general anesthetic and LMA was placed. The left lower extremity was prepped and draped in sterile fashion. Timeout was performed. Everyone was in agreeance as the correct side, site, patient and procedure. The procedure was then begun with the knee flexed down to 90. The lateral and medial portals sites were injected with 0.25% Marcaine with epinephrine and the lateral portal was established first an 11-blade scalpel and a trocar was then entered into the knee in the suprapatellar pouch. No loose body was seen in that, neither in the lateral gutter, but the medial gutter had a small loose body of cartilage, was extracted via suction. The medial portal had been established prior to that with an 18-gauge spinal needle and then 11-blade scalpel. Probe was brought in and then the medial meniscus was then probed and no tears were seen in the medial meniscus. The ACL was probed as well and then the knee was then [id number]-[id number]'ed and the lateral compartment was entered. The probe was brought onto the meniscus and it was pulled clear into the joint from the posterior aspect and a peripheral tear was noted as it was quite mobile. Then, she had a small tear in the more inner part of the meniscus as well. This was trimmed out with a biter. I then switched portals. The camera was brought in through the medial portal and the sled for the meniscal Fast-Fix repair was brought out through the lateral portal as the straight one. I then used the Fast-Fix, two of them, to fix the lateral meniscus and these were placed in the periphery of the lateral meniscus and cinched down. The meniscus was then probed and seen to have less excursion into the joint as it fixed better to the posterior wall. The suction was then turned on, the water was OPERATIVE REPORT [id number] PHILIPP WHITEHEAD turned off, and excess fluid was removed from the knee. The portal sites were then closed with 4-0 Monocryl in an inverted interrupted fashion and Steri-Strips were placed over the wounds, and 4 x 4 and Tegaderm was then placed over the knee. ABD, Webril, Ludwig wrap were then placed on the knee and RIDDHI hose stocking up to the knee, and the knee was put into a hinged knee brace locked in extension. The patient was awakened and taken to recovery in stable condition. ESTIMATED BLOOD LOSS: Minimal. COMPLICATIONS: None. TRANSINT:[id number] Voice Confirmation ID: [id number] DOCUMENT ID: [id number] ANEUDY WASHINGTON DO at 1513 CC: [id number] DICTATION DATE: 08/09/18 1059 INTERNETWORKING TECHNICIAN: 08/09/18 1312 REG [facility] [address] [place] [address]
== END 2018-08-09 13:50 | disposition home or self-care (01) ==
LOC: D.OPS 06:27 → D.PAN 08:30 → D.OPS 13:50
PROVIDERS: Anesthesiology; ATTEND Orthopaedic Surgery
DX: S83.282A Other tear of lateral meniscus, current injury, left knee, initial encounter (principal); Z01.812 Encounter for preprocedural laboratory examination

== ENCOUNTER → 2018-09-17 09:29 | Outpatient (CLI) | payer MEDICARE ==
[2018-08-09 06:50] VITALS: BMI 30.8
[~2018-09-17 09:29] MED LIST changes: +VISTARIL50 MG PO
== END | disposition home or self-care (01) ==
LOC: D.MRI 09:29
PROVIDERS: ATTEND Orthopaedic Surgery
DX: M25.561 Pain in right knee (principal)

== ENCOUNTER 2019-02-21 05:00 | Day surgery (SDC) | payer MEDICARE ==
[2019-02-20 10:01] LABS: HEMOGLOBIN 11.1 g/dL (12-16); MCHC 31.7 g/dL (31.0-37.0); MCV 88.2 fL (80.0-100.0); MEAN PLATELET VOLUME 8.6 fL (7.4-10.4); RBC 3.97 10x6/uL (4.00-5.40); RDW 14.1 % (11.5-14.5); WBC 5.6 10x3/uL (4.8-10.8)
[~2019-02-21] VITALS: Ht 162.6 cm; Wt 93.0 kg
[2019-02-21 06:14] VITALS: BP 135/92; Ht 162.6 cm; Wt 93.0 kg
--- NOTE | 2019-02-21 06:33 | NUR ---
POSITIVE FOR SUICIDE RISK ASSESSMENT. OMAR COLON TOE TRIMMER NOTIFIED
[2019-02-21] MEDS ORDERED: OXYCODONE HCL10 MG PO (08:06)
--- NOTE | 2019-02-21 10:23 | NUR ---
DR. LOCKHART NOTIFIED AND REVIEWED PT'S BEHAVIOR AND ASSESSMENT RESULTS. PT IS A LOW RISK PER DR. LOCKHART. DR. LOCKHART STATED TO GIVE RESOURCES TO PT AT TIME OF DISCHARGE. NO FURTHER ORDERS AT THIS TIME. RESOURCES REVIEWED WITH PT AND SHE VERBALIZIED UNDERSTANDING.
--- NOTE | 2019-02-21 10:24 | NUR ---
PATIENT AMBULATING AROUND ROOM WITH WALKER, STATES HAS A WALKER AT HOME SHE CAN USE. LEFT PORT FLUSHED WITH HEPARIN AND DEACCESSED. DRESSING IN PERSONAL CLOTHING. DISCHARGE INSTRUCTIONS REVIEWED WITH PATIENT AND MOTHER, DISCHARGED HOME VIA WHEELCHAIR TO PRIVATE VEHICLE WITH MOTHER
--- NOTE | 2019-02-21 12:09 | OP ---
PATIENT NAME: PHILIPP WHITEHEAD MEDICAL RECORD: [id number] :73 LOCATION:PATRICIA ADMISSION DATE: SURGEON: ANEUDY WASHINGTON DO DATE OF OPERATION: 02/21/2019 PROCEDURE PERFORMED: Right knee arthroscopy with partial medial meniscectomy and lateral release. PREOPERATIVE DIAGNOSIS: Right knee patellofemoral syndrome. POSTOPERATIVE DIAGNOSES: Right knee patellofemoral syndrome with lateral meniscal tear. INDICATIONS: Ms. Whitehead is a 43-year-old female who has had right knee pain for quite some time. She has been doing physical therapy and had an MRI, which showed chondromalacia of the patella and lateral tilting patella, but her TT-TG was normal. The patient had tried all manner of nonoperative treatment including injections. She was tired of dealing with pain, wants something done surgically. I informed her of the risks and benefits including infection, bleeding, continued knee pain, patellar instability, need for further surgery, blood clots, and even . She is aware of that and signed the consent. SURGEON: Aneudy Washington DO DESCRIPTION OF PROCEDURE: The patient was taken to the operative suite, laid in supine position, given general anesthetic and LMA was placed, given 2 grams of Ancef preoperatively. The right lower extremity was prepped and draped in sterile fashion. Timeout was performed and everybody was in agreement as to the correct site, side, patient, and procedure. The portal sites in the anterior knee were then injected with 0.5% Marcaine with epinephrine with 4 mL in each site. The lateral portal was then established with 11-blade scalpel. Trocar was entered into the knee. The knee was then inspected with the suprapatellar pouch. A lateral tilt patella was noted. The medial and lateral gutters were inspected. No loose bodies were seen. The medial compartment was then entered into and the medial portal was established with an 18-gauge spinal needle and 11-blade scalpel. The medial meniscus was inspected with a probe and no tear was seen in it. The ACL was in good repair as well. The knee was in [id number] and the lateral compartment was entered. There was a tear seen on the undersurface of just the most inner part of the middle portion of the lateral meniscus. This was trimmed out with a biter and shaver. We then addressed the patellar chondromalacia and then abrasion chondroplasty was done along the medial facet of the patella where the grade III chondromalacia was. The scope was then switched to the medial portal and a lateral release was performed. Tourniquet was inflated due to encountering some bleeding. The bleeding was then coagulated and the tourniquet was up to 350 mmHg, was down after 8 minutes. Lateral release was then complete and the patella was seen to track very well in the trochlear groove. Certainly an improvement from pre-lateral release. The suction was then turned on. The water was turned off. All the excess fluid was taken out of the knee. The portal sites were then closed with 4-0 Monocryl in inverted interrupted fashion and the Steri-Strips, Adaptic, 4 x 4's, ABD, Webril and Ludwig wrap were then placed on the edge and RIDDHI hose stocking up to the knee. The patient was awakened and taken to recovery in stable condition. BLOOD LOSS: Minimal. OPERATIVE REPORT [id number] PHILIPP WHITEHEAD COMPLICATIONS: None. TRANSINT:[id number] Voice Confirmation ID: [id number] DOCUMENT ID: [id number] ANEUDY WASHINGTON DO at 1209 CC: [id number] DICTATION DATE: 02/21/19 0804 [employer] SALES REPRESENTATIVE: 02/21/19 0943 [facility] 02/21/19 [facility] [address] [place] [address]
== END 2019-02-21 10:24 | disposition home or self-care (01) ==
LOC: D.OPS 05:00 → D.PAN 07:00 → D.OPS 08:30
PROVIDERS: Anesthesiology; ATTEND Orthopaedic Surgery
DX: S83.241A Other tear of medial meniscus, current injury, right knee, initial encounter (principal); X58.XXXA Exposure to other specified factors, initial encounter

== ENCOUNTER 2019-03-06 03:34 | Emergency (ER) | payer MEDICARE ==
[~2019-03-06] VITALS: Ht 162.6 cm; Wt 97.7 kg
[2019-03-06 03:38] VITALS: Ht 162.6 cm; Wt 97.7 kg
[2019-03-06] MEDS ORDERED: IBUPROFEN800 MG PO (05:03)
[2019-03-06] MEDS ORDERED: CYCLOBENZAPRINE10 MG PO (05:03)
[2019-03-06] MEDS ORDERED: ACETAMINOPHEN500 M1 PO (05:03)
[2019-03-06 05:19] VITALS: BP 133/89
== END 2019-03-06 05:20 | disposition home or self-care (01) ==
LOC: D.ER 03:34
DX: M25.562 Pain in left knee (principal); M79.662 Pain in left lower leg; X58.XXXA Exposure to other specified factors, initial encounter

== ENCOUNTER 2019-11-24 08:00 | Outpatient (CLI) | payer MEDICARE ==
[2019-03-06 03:38] VITALS: BMI 37.0
[~2019-11-24 08:00] MED LIST changes: +ACETAMINOPHEN500 M1 PO; +IBUPROFEN800 MG PO
== END 2019-11-24 23:59 | disposition home or self-care (01) ==
LOC: D.MAMMO 08:00
PROVIDERS: ATTEND Family Medicine
DX: Z12.31 Encounter for screening mammogram for malignant neoplasm of breast (principal)

== ENCOUNTER → 2020-02-23 14:35 | Outpatient (CLI) | payer MEDICARE ==
[2019-03-06 03:38] VITALS: BMI 37.0
== END | disposition home or self-care (01) ==
LOC: D.MRI 14:35
PROVIDERS: ATTEND Orthopaedic Surgery
DX: M25.562 Pain in left knee (principal)